=== PATIENT | female | born 1985 | race Caucasian/White ===

== ENCOUNTER → 2016-10-04 07:35 | Outpatient (CLI) | payer MEDICAID ==
[~2016-10-04 07:35] MED LIST: BIOTIN5 MG PO; HYDROCODONE-APA1 TAB PO; ULTRAM50 MG PO
[2016-11-09 06:12] VITALS: BMI 20.5
== END | disposition home or self-care (01) ==
LOC: D.NM 07:35
DX: R10.11 Right upper quadrant pain (principal)

== ENCOUNTER 2016-11-09 05:20 | Day surgery (SDC) | payer MEDICAID ==
[2016-11-08 16:13] LABS: BASOPHILS 0.3 % (0.0-2.0); EOSINOPHILS 0.7 % (0-7); HEMOGLOBIN 13.9 g/dL (12-16); IMMATURE GRANULOCYTES 0.2 % (0-5); LYMPHOCYTES 30.1 % (15-50); MCH 30.4 pg (26.0-34.0); MCHC 33.1 g/dL (31.0-37.0); MCV 91.9 fL (80.0-100.0); MEAN PLATELET VOLUME 9.6 fL (7.4-10.4); MONOCYTES 7.6 % (2-11); NEUTROPHILS 61.1 % (40-80); PLATELET COUNT 316 10x3/uL (130-400); RBC 4.57 10x6/uL (4.00-5.40); RDW 13.2 % (11.5-14.5); WBC 9.4 10x3/uL (4.8-10.8)
[2016-11-08 16:30] LABS: CALC OSMOLALITY 276 mosm/kg (275-300); CARBON DIOXIDE 29.2 mmol/L (21.0-32.0); CHLORIDE - SERUM 101 mmol/L (98-107); CREATININE - SERUM 0.7 mg/dL (0.6-1.3); GLUCOSE 88 mg/dL (74-106); POTASSIUM - SERUM 3.9 mmol/L (3.5-5.1); SODIUM 140 mmol/L (136-145); UREA NITROGEN 9 mg/dL (7-18); eGFR NON AFRICAN AMERICAN > 90 mL/min (90-120)
[~2016-11-09] VITALS: Ht 157.5 cm; Wt 50.8 kg
[~2016-11-09 05:20] MED LIST changes: -HYDROCODONE-APA1 TAB PO
[2016-11-09 06:12] VITALS: BP 95/66; Ht 157.5 cm; Wt 50.8 kg
[2016-11-09] MEDS ORDERED: HYDROCODONE-APA1 TAB PO (08:55)
--- NOTE | 2016-11-09 09:21 | NUR ---
CARE TRANSFERED TO TYLOR [facility]OC[facility] @1818
--- NOTE | 2016-11-09 14:59 | NUR ---
1145 DRESSED. AWAKE & ALERT. GIVEN DISCHARGE INSTRUCTIONS FOR CHOLECYSTECTOMY, MED REC., RTC APPT., OPS D/C INSTRUCTIONS, & RX: NORCO 10. PT VOICED UNDERSTANDING. TO PRIVATE CAR PER WHEELCHAIR BY VOLUNTEER. HOME WITH BOYFRIEND. Leroy CARVALHO R.N.
--- NOTE | 2016-11-12 13:33 | OP ---
PATIENT NAME: KERMIT GÓMEZ MEDICAL RECORD: [id number] :83 LOCATION:[facility] ADMISSION DATE: SURGEON: VITO ALMANZA MD DATE OF OPERATION: 11/09/2016 PREOPERATIVE DIAGNOSES: 1. Biliary dyskinesia. 2. Tobacco dependence syndrome. POSTOPERATIVE DIAGNOSES: 1. Biliary dyskinesia. 2. Tobacco dependence syndrome. PROCEDURE: Single incision laparoscopic cholecystectomy. SURGEON: Vito Almanza MD. REPORT OF PROCEDURE: The patient's abdomen was prepped and draped in sterile fashion. A skin incision was made through the patient's umbilicus. Electrocautery was used to dissect through the subcutaneous tissues and down through the fascia. The patient had a very small umbilical hernia. We penetrated through this and into the abdominal cavity. Once we had the abdomen exposed, we inserted an SILS port. The abdomen was then insufflated and the patient's gallbladder was visualized. It was mildly distended with no sign of any acute inflammation. There were some small adhesive bands of the omentum to this. These were teased down carefully with blunt dissection. The cystic artery and cystic duct were dissected free and these were clipped proximally and distally and ligated in standard fashion. The gallbladder was then taken off the liver bed using electrocautery. Any bleeding from the liver bed was then treated with electrocautery. We irrigated out the right upper quadrant and assured there was no sign of any bleeding or bile leakage. At this point, the ports and insufflation were then removed and the gallbladder was taken out through the umbilicus. The umbilical fascia was closed with interrupted 0 Vicryls times 6 after the fascial edges had been cleaned off appropriately. The wound was then irrigated out with normal saline and infused with 10 mL of 0.25% Marcaine plain. The skin incision was closed with running subcutaneous 5-0 Monocryl and dressed with Dermabond. COMPLICATIONS: None. CONDITION: Stable. ANESTHESIA: General endotracheal and local. BLOOD LOSS: Minimal. TRANSINT:[id number] Voice Confirmation ID: [id number] DOCUMENT ID: [id number] OPERATIVE REPORT [id number] KERMIT GÓMEZ VITO ALMANZA MD at 1333 CC: JACLYN CARPENTER DO [id number] DICTATION DATE: 11/09/16 0858 SOLAR SYSTEM INSTALLER: 11/09/16 1555 [facility] [place] [place] 11/09/16 [place] [id number] [facility] [place] [address]
== END 2016-11-09 11:45 | disposition home or self-care (01) ==
LOC: D.OPS 05:20 → D.PAN 07:30 → D.OPS 07:30
PROVIDERS: Surgery
DX: K81.1 Chronic cholecystitis (principal); F17.200 Nicotine dependence, unspecified, uncomplicated

== ENCOUNTER 2016-11-23 22:28 | Emergency (ER) | payer MEDICAID ==
[2016-11-09 06:12] VITALS: BMI 20.5
[~2016-11-23 22:28] MED LIST changes: +HYDROCODONE-APA1 TAB PO
[2016-11-23 23:18] LABS: BASOPHILS 0.4 % (0.0-2.0); EOSINOPHILS 1.9 % (0-7); HEMATOCRIT 38.1 % (36.0-48.0); HEMOGLOBIN 12.5 g/dL (12-16); IMMATURE GRANULOCYTES 0.1 % (0-5); MCH 29.8 pg (26.0-34.0); MCHC 32.8 g/dL (31.0-37.0); MCV 90.9 fL (80.0-100.0); MEAN PLATELET VOLUME 9.2 fL (7.4-10.4); MONOCYTES 8.4 % (2-11); NEUTROPHILS 51.2 % (40-80); PLATELET COUNT 336 10x3/uL (130-400); RBC 4.19 10x6/uL (4.00-5.40); RDW 12.9 % (11.5-14.5); WBC 7.3 10x3/uL (4.8-10.8)
== END 2016-11-23 23:51 | disposition home or self-care (01) ==
LOC: D.ER 22:28
PROVIDERS: Emergency Medicine
DX: T81.4XXA Infection following a procedure, initial encounter (principal); L08.9 Local infection of the skin and subcutaneous tissue, unspecified; F17.200 Nicotine dependence, unspecified, uncomplicated